=== PATIENT | female | born 1995 | race Caucasian/White ===

== ENCOUNTER 2024-10-18 09:34 | Emergency (ER) | payer OTHER, MEDICAID, SELFPAY ==
[2024-10-18 09:37] VITALS: BP 170/117; PULSE 68; RESP 16; TEMP 36.4; O2SAT 100
--- NOTE | 2024-10-18 11:12 | PC.NURSE ---
Patient not found in lobby when called for.
== END 2024-10-18 11:20 | disposition left against medical advice (07) ==
LOC: ANHED 11:15
DX: H57.89 Other specified disorders of eye and adnexa (principal)
CPT/HCPCS: 99199

== ENCOUNTER 2025-08-01 10:37 | Emergency (ER) | payer OTHER, MEDICAID, SELFPAY ==
[2025-08-01 10:51] VITALS: BP 196/118; PULSE 76; RESP 17; TEMP 36.4; O2SAT 99
[2025-08-01 11:09] VITALS: BP 176/111; PULSE 65; RESP 17; O2SAT 100
[2025-08-01 11:16] VITALS: BP 168/117; PULSE 73; RESP 19; O2SAT 99
[2025-08-01 11:31] VITALS: BP 163/109; PULSE 69; RESP 19; O2SAT 100
--- OUTSIDE RECORDS SUMMARY | 2025-08-01 12:19 | XMS_ITS | Clinical Summary ---
Author Organization [facility] Address [address] [place] [address] Phone Care Team Providers Care Test Center Administrator Name Role Phone Unavailable Primary Care Provider Unavailabl e Allergies No known active allergies Medications No known medications Social History Tobacco Use Types Packs/Day Years Used Date Smoking Tobacco: Never Alcohol Use Standard Drinks/Week Comments No 0 (1 standard drink = 0.6 oz pur e alcohol) Comments Unknown Sex and Gender Information Value Date Recorded Sex Assigned at Not on file Legal Sex Female 7:34 PM CDT Gender Identity Not on file Sexual Orientation Not on file Last Filed Vital Signs Vital Sign Reading Time Taken Comments Blood Pressure 125/77 03/31/2017 2:29 PM CDT Pulse 81 03/31/2017 2:29 PM CDT Temperature 36.8 C (98.2 F) 03/31/2017 2:29 PM CDT Respiratory Rate 18 03/31/2017 2:29 PM CDT Oxygen Saturation 97% 03/31/2017 2:29 PM CDT Inhaled Oxygen Concentration - - Weight 53.1 kg (117 lb) 03/31/2017 2:29 PM CDT Height 157.5 cm (5' 2) 03/31/2017 2:29 PM CDT Body Mass Index 21.4 03/31/2017 2:29 PM CDT Plan of Treatment Not on file
[2025-08-01 12:30] VITALS: BP 177/112; PULSE 81; RESP 18; O2SAT 100
--- NOTE | 2025-08-01 12:40 | ED_ITS ---
HPI - Recheck/Abnormal Lab/Rx General Chief Complaint: Recheck/Abnormal Lab/Rx Stated Complaint: high bp Time Seen by Provider: 08/01/25 12:03 History of Present Illness HPI narrative: This is a 30-year-old female with recent diagnosis of hypertension who presents to ED for headache and high blood pressure. Patient states that she woke up this morning with a slight frontal headache. She states her blood pressure was 190s/110s. She was just started on benazepril 10 mg daily last week. She called her PCP today who advised she come to the ED for further evaluation. Patient denies numbness, tingling, weakness, focal weakness, chest pain, shortness of breath, changes in urination. Related Data Allergies Allergy/AdvReac Type Severity Reaction Status Date / Time cephalexin AdvReac Mild N/V Verified 02/16/16 06:28 Review of Systems Review of Systems: Gen.: Denies fevers or chills Eyes: Denies eye pain or visual change ENT: Denies congestion Respiratory: Denies shortness of breath or cough CV: Denies chest pain or palpitations GI: Denies abdominal pain nausea, emesis or diarrhea denies burning, urgency, frequency or hematuria Musculoskeletal: Denies back pain or muscle pain Neuro: Denies numbness, tingling, weakness or focal weakness Skin: Denies rash Except as documented, all other systems reviewed and negative Exam Narrative: APPEARANCE: No acute distress, nontoxic, resting in bed EYES: EOMI HEENT: Normocephalic, atraumatic, OMM RESPIRATORY: No respiratory distress Clear to auscultation bilaterally with no rhonchi wheezing or rales. CARDIOVASCULAR: Regular rate and rhythm without murmurs rubs or gallops. ABDOMINAL: Soft, nontender, nondistended, no rebound or guarding MUSCULOSKELETAl: Moves all extremities. No clubbing, cyanosis or edema. NEURO: Awake and alert. Following commands, speech normal, no focal deficits . NIHSS is 0 SKIN:: Warm, dry. No rashes lesions or abrasions PSYCHIATRIC: Normal affect/mood, Course Vital Signs Vital signs: Vital Signs Temperature 97.6 F 08/01/25 10:51 Pulse Rate 76 08/01/25 10:51 Respiratory Rate 17 08/01/25 10:51 Blood Pressure 196/118 H 08/01/25 10:51 Pulse Oximetry 99 08/01/25 10:51 Oxygen Delivery Room Air 08/01/25 10:51 Temperature 97.6 F 08/01/25 10:51 Pulse Rate 65 08/01/25 12:49 Respiratory Rate 17 08/01/25 12:49 Blood Pressure 166/113 H 08/01/25 12:49 Pulse Oximetry 100 08/01/25 12:49 Oxygen Delivery Room Air 08/01/25 10:51 MDM - Recheck/Abnormal Lab/Rx MDM Narrative Medical decision making narrative: 30-year-old female who presents to the ED for hypertension and headache. On initial evaluation, patient was in acute distress, afebrile, hemodynamically stable. Initial BP in triage was 186/218 but this 166/113 without any in tervention. She had a nonfocal neuro exam. No concerns for intracranial pathology at this time. No evidence hypertensive emergency. As patient is otherwise asymptomatic at this time, she was advised to take an additional dose of her antihypertensive at home and to follow up with her PCP the next couple days for re-evaluation and to further discuss her antihypertensive regimen. Patient was agreeable to this plan. Given strict return precautions. Differential Diagnosis Differential diagnosis: Likely other (hypertension, migraine, tension headache) Medical Records Attestation: I reviewed the patient's medical records. Discharge Plan Discharge Clinical Impression: Hypertension Qualifiers: Hypertension type: unspecified Qualified Code(s): I10 - Essential (primary) hypertension Patient Disposition: Home Condition: Stable Instructions: Antibiotic Form, Hypertension (ED) Additional Instructions: take an extra dose of benazepril when you get home. Follow-up with your PCP in the next couple days for re-evaluation And to discuss your antihypertensive regimen. Return the ED for any new or worsening symptoms. Patient Language: Mosotho Follow-up/Referrals: Kendra,Liliane Stovall MD [Primary Care Provider, Unknown] Stand Alone Forms: Work/School Release IP
[2025-08-01 12:49] VITALS: BP 166/113; PULSE 65; RESP 17; O2SAT 100
--- OUTSIDE RECORDS SUMMARY | 2025-08-01 13:44 | XMS_ITS | Clinical Summary ---
Author Organization [facility] Address [address] [place] [address] Phone Care Team Providers Care Correction Officer [facility] Name Role Phone Unavailable Primary Care Provider [...]
== END 2025-08-01 12:51 | disposition home or self-care (01) ==
PROVIDERS: Emergency Provider Student in an Organized Health Care Education/Training Program; PCP Emergency Medicine
DX: I10 Essential (primary) hypertension (principal)
CPT/HCPCS: 99281